=== PATIENT | male | born 1955 | race Caucasian/White ===

== ENCOUNTER → 2017-01-10 | Outpatient (CLI) | payer BC ==
--- NOTE | 2017-01-11 07:08 | PN ---
DATE OF SERVICE: 01/10/2017 A 61-year-old gentleman followed in the sleep center for treatment of obstructive sleep apnea-hypopnea syndrome. The patient returned to discuss results of home sleep apnea test and plan of the treatment. I discussed results of home sleep apnea test with the patient in detail. He has severe sleep apnea with apnea-hypopnea index 67.6 and severe oxygen desaturation to 70% and ( ) during the test in the range between 61 and 141. Patient occasionally has episodes of swelling of the feet. [place] Sleepiness Scale today is 4. MEDICATIONS: Losartan, hydrochlorothiazide, lansoprazole, furosemide, levothyroxine, potassium supplement. During physical exam, a 61-year-old gentleman without distress. VITAL SIGNS: BP 134/83, HR 96, RR 18, height 5 feet 9 inches, weight 253, body mass index 37.8. Neck 17.5. Temperature 97.9. Oxygen saturation at room air 94%. HEENT: PERRLA, EOMI. Evaluation of oropharynx showed extremely low position of soft palate. Neck: Supple. No JVD. Thyroid is not palpable. LUNGS: Clear to percussion and to auscultation. Good air exchange. No wheezing or rhonchi. HEART: S1, S2 regular. No murmurs, gallops, or rubs. ABDOMEN: Obese. EXTREMITIES: 1 to 2+ bilateral ankle edema. 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 Cranial nerves 2 to 7 intact. There is no fasciculation or atrophy noted. No focal deficits observed. IMPRESSION: 1. Severe obstructive sleep apnea-hypopnea syndrome. 2. Obesity; body mass index of 37.3. 3. Hypertension. 4. Hypothyroidism. 5. Swelling of the legs. 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 PLAN: 1. CPAP titration. 2. Losing weight. 3. Sleep hygiene with regular time in bed for at least 8 hours. 4. No driving if feeling any sleepiness. Patient is aware about civil and criminal liability for unsafe driving. 5. I will see the patient after he will be started on treatment with CPAP to evaluate compliance with treatment, clinical response on treatment and to make any necessary adjustments. Thank you very much for allowing me to participate in the management of your patient. Sincerely, Edy Biggs MD, PhD, FAASM. Diplomat of [place] [employer], Sleep Medicine Board by [place] [employer] [place] [employer] [place] Inspector Repairer of [facility] [place]
== END | disposition home or self-care (01) ==
LOC: SLEEP 15:56
PROVIDERS: ATTEND Internal Medicine
DX: G47.33 Obstructive sleep apnea (adult) (pediatric) (principal); E66.9 Obesity, unspecified; I10 Essential (primary) hypertension; E03.9 Hypothyroidism, unspecified; Z68.37 Body mass index [BMI] 37.0-37.9, adult; M79.89 Other specified soft tissue disorders; Z79.899 Other long term (current) drug therapy
CPT/HCPCS: 99211

== ENCOUNTER → 2017-06-06 | Outpatient (CLI) | payer BC ==
--- NOTE | 2017-06-07 11:19 | PN ---
PROGRESS NOTE Date of Service: DATE OF SERVICE: 06/06/2017. 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 The patient recently had been documented to have obstructive sleep apnea-hypopnea syndrome. Also home sleep study showed apnea-hypopnea index 57.7, with oxygen desaturation to 74%, which is in the range of severe sleep apnea. Recently the patient was started on treatment with CPAP and automatic regimen with the pressure in the range of between 4 and 20 cm of water. I checked a reading from his machine. It showed the patient using equipment 100% of the time for more than 4 hours. Average usage is 5 hours and 39 minutes, 95% until the pressure is 10.2 with a maximum pressure of 11.5. Apnea-hypopnea index reading from the machine is only 0.9. Excel Sleepiness Scale today is 6. MEDICATIONS: 1. Losartan. 2. Hydrochlorothiazide. 3. Pantoprazole. 4. Furosemide. 5. Levothyroxine. 6. Potassium supplement. PHYSICAL EXAMINATION: GENERAL A pleasant gentleman without any distress. VITAL SIGNS BP 133/65, HR 88, RR 16, weight 255, which is 2 pounds more than during previous visit. Temp 97.8, oxygen saturation on room air 97%. HEPEDRO PERTEN, EOMI, evaluation of oropharynx showed tongue protrudes midline, extremely low position of soft palate. Neck Supple, no JVD. Thyroid is not palpable. LUNGS Clear to percussion and to auscultation. Good air exchange. No wheezing or rhonchi. HEART S1, S2 regular. No murmurs, gallops, or rubs. ABDOMEN: Obese, soft and nontender. Bowel sounds are present. No organomegaly appreciated. EXTREMITIES No clubbing or cyanosis. 1+ ankle edema. 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 Cranial nerves 2 to 7 intact. There is no fasciculation or atrophy. noted. No focal deficits observed. IMPRESSION: 1. Severe obstructive sleep apnea-hypopnea syndrome. Apnea-hypopnea index 67.6 with oxygen desaturation to 70%. Patient demonstrated 100% compliance with treatment. Average usage during the night 5 hours 39 minutes. Apnea-hypopnea index on the treatment is only 0.9, which is totally normal. Patient benefitting from treatment with continuous positive airway pressure. 2. Obesity. 3. Periodic limb movements during titration. 4. Hypertension. 5. Hypothyroidism. 6. Swelling of the legs. PLAN: 1. The patient will continue to use CPAP equipment every night for the whole night. 2. Precautions related to driving. No driving if feeling any sleepiness. Patient is aware of civil and criminal liability for unsafe driving. 3. Maintenance of wakefulness test for objective evaluation of patient alertness during the day. 4. Losing weight. 5. Sleep hygiene with regular time in bed for at least 8 hours. Thank you very much for for allowing me to participate in the management of your patient. Edy Biggs MD, PhD, FAASM Diplomat of [place] [employer] [place] [employer] Manager Reading of [facility] [place] MMODL / ARACELIN: [id number] /
== END | disposition home or self-care (01) ==
LOC: SLEEP 15:17
PROVIDERS: ATTEND Internal Medicine
DX: G47.33 Obstructive sleep apnea (adult) (pediatric) (principal); E66.9 Obesity, unspecified; I10 Essential (primary) hypertension; E03.9 Hypothyroidism, unspecified; G47.61 Periodic limb movement disorder; Z79.899 Other long term (current) drug therapy

== ENCOUNTER 2022-06-15 13:04 | Emergency (ER) | payer MEDICARE, OTHER ==
[2022-06-15 15:30] LABS: Basophils # (A) 0.1 k/uL (0-0.2); Basophils % (A) 1 %; Eosinophils # (A) 0.3 k/uL (0-0.7); Eosinophils % (A) 3 %; HCT 47.9 % (39.0-53.0); HGB 15.5 gm/dL (13.0-17.5); Lymphocytes % (A) 18 %; MCH 28.7 pg (25.0-35.0); MCHC 32.4 g/dL (31.0-37.0); MCV 88.5 fL (80.0-100.0); Mean Platelet Volume 7.6; Monocytes % (A) 9 %; Neutrophils # (A) 7.6 k/uL (1.3-7.7); Neutrophils % (A) 68 %; Platelet Count 190 k/uL (150-450); RBC 5.41 m/uL (4.30-5.90); RDW 13.4 % (11.5-15.5); WBC 11.2 k/uL (3.8-10.6)
[2022-06-15 15:39] LABS: ALT 61 U/L (4-49); AST 48 U/L (17-59); African American GFR (CKD) >90 (>60 ml/min/1.73 sqM); Albumin 4.5 g/dL (3.5-5.0); Alkaline Phosphatase 83 U/L (38-126); Anion Gap 13 mmol/L; Blood Urea Nitrogen 14 mg/dL (9-20); Calcium 9.1 mg/dL (8.4-10.2); Carbon Dioxide 24 mmol/L (22-30); Chloride 101 mmol/L (98-107); Glucose 99 mg/dL (74-99); Non-African American GFR(CKD) 88 (>60 ml/min/1.73 sqM); Sodium 138 mmol/L (137-145); Total Bilirubin 0.7 mg/dL (0.2-1.3)
--- NOTE | 2022-06-15 16:41 | ED ---
General Adult HPI - General Chief complaint: Abdominal Pain Stated complaint: abd pain Time Seen by Provider: 06/15/22 16:21 Source: patient Mode of arrival: ambulatory Limitations: no limitations - History of Present Illness Initial comments: Dictation was produced using [employer] dictation software. please excuse any grammatical, word or spelling errors. Chief Complaint: 67-year-old male presents with left lower quadrant abdominal pa in History of Present Illness: Patient is a 59-year-old male with no significant past medical history presents to the emergency Department with 4-5 days of left lower quadrant abdominal pain. Patient has no history of diverticulitis. Patient reports that he has had some bouts of constipation recently. Denies any fever or constitutional symptoms. Denies any obvious exacerbating or mitigating factors. It is worse when he palpates the area. Patient states that whenever he was certain position the pain migrates. The ROS documented in this emergency department record has been reviewed and c onfirmed by me. Those systems with pertinent positive or negative responses have been documented in the HPI. All other systems are other negative and/or noncontributory. PHYSICAL EXAM: General Impression: Alert and oriented x3, not in acute distress HEENT: Normocephalic atraumatic, extra-ocular movements intact, pupils equal and reactive to light bilaterally, mucous membranes moist. Cardiovascular: Heart regular rate and rhythm Chest: Able to complete full sentences, no retractions, no tachypnea Abdomen: abdomen soft, palpatory tenderness to the left lower quadrant and left flank area non-distended, no organomegaly Musculoskeletal: Pulses present and equal in all extremities, no peripheral edema Motor: no focal deficits noted Neurological: CN II-XII grossly intact, no focal motor or sensory deficits noted Skin: Intact with no visualized rashes Psych: Normal affect and mood ED course: 67-year-old male presents emergency Department with 4-5 days of left lower quadrant, left flank abdominal pain. Vital Signs upon arrival are within acceptable limits. Laboratory evaluation obtained. CBC, abdominal labs are all within acceptable limits. A lactic acidosis. Computed tomography scan abdomen pelvis was obtained showing findings concerning for acute uncomplicated diverticulitis. She is well-appearing at the bedside. Patient reevaluated be stable condition. Patient given antibiotics. Advised follow-up with primary care doctor. - Related Data Previous Rx's Medication Instructions Recorded Amoxic-Pot Clav 875-125Mg 1 tab PO TID 5 Days #15 tab 06/15/22 [Augmentin 875-125] Allergies Allergy/AdvReac Type Severity Reaction Status Date / Time No Known Allergies Allergy Verified 06/15/22 13:45 Review of Systems ROS Statement: Those systems with pertinent positive or pertinent negative responses have been documented in the HPI. ROS Other: All systems not noted in ROS Statement are negative. Past Medical History Past Medical History: No Reported History History of Any Multi-Drug Resistant Organisms: None Reported Past Surgical History: Orthopedic Surgery Past Psychological History: No Psychological Hx Reported Smoking Status: Never smoker Past Alcohol Use History: Occasional Past Drug Use History: None Reported General Exam Limitations: no limitations Course Vital Signs 06/15/22 13:42 Temperature 98.7 F Pulse Rate 107 H Respiratory 20 Rate Blood Pressure 136/77 O2 Sat by Pulse 98 Oximetry Medical Decision Making - Lab Data Result diagrams: 06/15/22 15:15 06/15/22 15:15 Lab Results 06/15/22 06/15/22 06/15/22 Range/Units 15:15 15:15 17:15 WBC 11.2 H (3.8-10.6) k/uL RBC 5.41 (4.30-5.90) m/uL Hgb 15.5 (13.0-17.5) gm/dL Hct 47.9 (39.0-53.0) % MCV 88.5 (80.0-100.0) fL MCH 28.7 (25.0-35.0) pg MCHC 32.4 (31.0-37.0) g/dL RDW 13.4 (11.5-15.5) % Plt Count 190 (150-450) k/uL MPV 7.6 Neutrophils % 68 % Lymphocytes % 18 % Monocytes % 9 % Eosinophils % 3 % Basophils % 1 % Neutrophils # 7.6 (1.3-7.7) k/uL Lymphocytes # 2.0 (1.0-4.8) k/uL Monocytes # 1.0 (0-1.0) k/uL Eosinophils # 0.3 (0-0.7) k/uL Basophils # 0.1 (0-0.2) k/uL Sodium 138 (137-145) mmol/L Potassium 4.0 (3.5-5.1) mmol/L Chloride 101 (98-107) mmol/L Carbon Dioxide 24 (22-30) mmol/L Anion Gap 13 mmol/L BUN 14 (9-20) mg/dL Creatinine 0.89 (0.66-1.25) mg/dL Est GFR (CKD-EPI)AfAm >90 (>60 ml/min/1.73 sqM) Est GFR (CKD-EPI)NonAf 88 (>60 ml/min/1.73 sqM) Glucose 99 (74-99) mg/dL Plasma Lactic Acid Hollis 1.3 (0.7-2.0) mmol/L Calcium 9.1 (8.4-10.2) mg/dL Total Bilirubin 0.7 (0.2-1.3) mg/dL AST 48 (17-59) U/L ALT 61 H (4-49) U/L Alkaline Phosphatase 83 (38-126) U/L Total Protein 7.0 (6.3-8.2) g/dL Albumin 4.5 (3.5-5.0) g/dL Disposition Clinical Impression: Diverticulitis Disposition: HOME SELF-CARE Condition: Fair Instructions (If sedation given, give patient instructions): Diverticulitis (ED) Prescriptions: Amoxic-Pot Clav 875-125Mg [Augmentin 875-125] 1 tab PO TID 5 Days #15 tab Is patient prescribed a controlled substance at d/c from ED?: No Referrals: Manolo Soriano DO [Primary Care Provider] - 1-2 days Time of Disposition: 18:58
--- NOTE | 2022-06-15 18:42 | CT ---
EXAMINATION TYPE: CT abdomen pelvis w con CT DLP: 2681.4 mGycm, Automated exposure control for dose reduction was used. DATE OF EXAM: 06/15/2022 5:55 PM COMPARISON: None. CLINICAL INDICATION:Male, 67 years old with history of LLQ pain, suspect diverticulitis; LLQ pain TECHNIQUE: Axial CT of the abdomen and pelvis. Sagittal and coronal reformats were created on a [employer] workstation. Contrast used:100 mL of Isovue 300 with IV Contrast, Oral contrast used: without Oral Contrast FINDINGS: LOWER CHEST: Unremarkable ABDOMEN LIVER: Diffusely hypoattenuating parenchyma. GALLBLADDER AND BILE DUCTS: Unremarkable. PANCREAS: Unremarkable. SPLEEN: Unremarkable. ADRENAL GLANDS: Unremarkable. KIDNEYS AND URETERS: No evidence of hydronephrosis or renal calculus. The ureters are unremarkable. Left renal cyst. PELVIS BLADDER: Unremarkable REPRODUCTIVE: Unremarkable. ABDOMEN & PELVIS STOMACH AND BOWEL: There are colonic diverticula present, there is focal bulging with inflammatory ch anges noted in the descending colon. No organizing fluid collection or evidence of pneumoperitoneum. No evidence of bowel obstruction. Appendix is normal. PERITONEUM: No evidence of pneumoperitoneum or free fluid. VASCULATURE: No evidence of aortic aneurysm. 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 LYMPH NODES: No gross evidence for lymphadenopathy. SOFT TISSUE/ABDOMINAL WALL: Fat-containing Bochdalek hernia. Bilateral fatty changes to the inguinal canals. IMPRESSION: 1. Focal bulging with surrounding inflammation which may represent a colonic diverticula in the desc ending colon suggestive of acute uncomplicated diverticulitis. Direct visualization with colonoscopy is recommended after resolution of acute symptoms to exclude underlying malignancy. 2. Hepatic steatosis.
[2022-06-15] MEDS ORDERED: AMOXIC-POT CLAV 875-125MG 1 EACH TAB PO STA (18:57)
[2022-06-16 00:43] VITALS: BP 136/70; PULSE 92; RESP 17; TEMP 98.3
== END 2022-06-15 19:44 | disposition home or self-care (01) ==
LOC: EC 13:04
DX: K59.00 Constipation, unspecified (principal)
CPT/HCPCS: 36415; 80053; 83605; 85025; 87040; 74177; 99284; Q9967

== ENCOUNTER → 2023-08-06 | Outpatient (CLI) | payer MEDICARE ==
--- NOTE | 2023-08-06 12:52 | XR ---
EXAMINATION TYPE: XR chest 2V DATE OF EXAM: 08/06/2023 COMPARISON: 10/14/1950 TECHNIQUE: PA and lateral views submitted. HISTORY: Shortness of breath FINDINGS: The lungs are clear and there is no pneumothorax, pleural effusion, or focal pneumonia. Heart size normal and no overt failure. Osseous structures demonstrate hypertrophic and degenerative changes of the spine. Bilateral shoulder arthropathy. Basilar atelectasis seen. There is biapical pleural thicke arelis. IMPRESSION: 1. No acute process.
== END | disposition home or self-care (01) ==
LOC: RADXRMAIN 12:12
PROVIDERS: ATTEND Family Medicine
DX: Z00.00 Encounter for general adult medical examination without abnormal findings (principal); R06.02 Shortness of breath; M54.59 Other low back pain
CPT/HCPCS: 71046

== ENCOUNTER → 2023-08-26 | Outpatient (CLI) | payer MEDICARE ==
--- NOTE | 2023-08-26 11:40 | CA ---
Exercise Stress Test Report Name: Ros Cabrera Exam Date: 08/26/2023 10:50 Exam Location: [facility] Ht (in): 70 Wt (lb): 292 BSA: 2.45 Ordering Phys: Manolo Soriano DO Referring Phys: MANOLO SORIANO,, Technologist: paddy marie Age: 68 Gender: M : 1955 Procedure CPT: Indications: R07.9 CHEST PAIN ICD-10 Codes: Patient History: CP, NASIMA, HTN, FAMILY HX, Medications: LOSARTAN, HYDROCHLOROTHIAZIDE, LEVOTHYROXIN, FUROSEMIDE, LANSOPRAZOLE, POT CHLORIDE Meds past 24 hrs: Pretest Chest Pain: STRESS TEST Rick Protocol Exercise Duration (min:sec): 04:[address] Depressions (mm): Angina Score: Flynn Score: Resting HR (bpm): 77 Peak HR (bpm): 135 Resting BP (mmHg): 139 / 70 Peak BP (mmHg): 204 / 68 MPHR: 151 Target HR: 128 % MPHR: 89 METS: 7.1 Total Dose: Peak Dose: Atropine: Double Product: 80099 BP Response: Stress Termination: Stress Symptoms: No chest pain or symptoms Stress Summary: The patient's target heart rate was achieved ECG ANALYSIS Resting ECG: Normal sinus rhythm normal axis normal intervals Stress ECG: No significant ST segment depression CONCLUSIONS Limited exercise tolerance Negative stress test by EKG criteria Dr. Marin Jerry MD (Electronically Signed) Final Date: 26 August 2023 11:40
--- NOTE | 2023-08-26 17:53 | CA ---
Transthoracic Echo Report Name: Ros Cabrera Age: 68 Gender: M : 1955 Exam Date: 08/26/2023 11:28 Exam Location: [facility] Ht (in): 70 Wt (lb): 292 Ordering Physician: Manolo Soriano DO Attending/Referring Phys: Press Offbearer Jessica Miller RDCS Procedure CPT: Indications: R07.9 CHEST PAIN Cardiac Hx: Technical Quality: Fair Contrast 1: Total Dose (mL): Contrast 2: Total Dose (mL): MEASUREMENTS (Male / Female) Normal Values 2D ECHO LV Diastolic Diameter PLAX 4.1 cm 4.2 - 5.9 / 3.9 - 5.3 cm LV Systolic Diameter PLAX 3.0 cm IVS Diastolic Thickness 1.4 cm 0.6 - 1.0 / 0.6 - 0.9 cm LVPW Diastolic Thickness 1.6 cm 0.6 - 1.0 / 0.6 - 0.9 cm LV Relative Wall Thickness 0.7 LA Volume 45.9 cm??? 18 - 58 / 22 - 52 cm??? LA Volume Index 17.5 cm???/m??? 16 - 28 cm???/m??? M-MODE Aortic Root Diameter MM 3.3 cm LA Systolic Diameter MM 3.7 cm LA Ao Ratio MM 1.1 AV Cusp Separation MM 2.2 cm DOPPLER AV Peak Velocity 113.2 cm/s AV Peak Gradient 5.1 mmHg AV Mean Velocity 77.3 cm/s AV Mean Gradient 2.7 mmHg AV Velocity Time Integral 19.7 cm LVOT Peak Velocity 94.7 cm/s LVOT Peak Gradient 3.6 mmHg LVOT Velocity Time Integral 18.6 cm MV Area PHT 2.4 cm??? Mitral E Point Velocity 63.5 cm/s Mitral A Point Velocity 104.5 cm/s Mitral E to A Ratio 0.6 MV Deceleration Time 311.1 ms MV E' Velocity 6.1 cm/s Mitral E to MV E' Ratio 10.4 TR Peak Velocity 232.3 cm/s TR Peak Gradient 21.6 mmHg Right Ventricular Systolic Press 26.6 mmHg FINDINGS Left Ventricle Mildly increased left ventricular wall thickness. Left ventricular cavity size normal. Normal left ventricular systolic function with no obvious regional wall motion abnormalities. Left ventricular ejection fraction is estimated at 55 %. Right Ventricle Normal right ventricular size and function. Right ventricular systolic pressure within normal limits. Right Atrium Normal right atrial size. Left Atrium Normal left atrial size. Mitral Valve Structurally normal mitral valve. No mitral stenosis. Mild mitral regurgitation. Aortic Valve No aortic valve stenosis or regurgitation. Tricuspid Valve Structurally normal tricuspid valve. Mild tricuspid regurgitation. Pulmonic Valve Structurally normal pulmonic valve. Pericardium No pericardial effusion. Aorta Normal size aortic root and proximal ascending aorta. CONCLUSIONS Technically suboptimal study secondary to poor echo windows Normal LV systolic function No obvious wall motion abnormalities Previewed by: Dr. Marin Jerry MD (Electronically Signed) Final Date: 26 August 2023 17:52
== END | disposition home or self-care (01) ==
LOC: RADECHMAIN 10:26
PROVIDERS: ATTEND Family Medicine
DX: R07.9 Chest pain, unspecified (principal); I10 Essential (primary) hypertension
CPT/HCPCS: 93017; 93306